=== PATIENT | male | born 1970 | race Caucasian/White ===

== ENCOUNTER 2019-01-05 21:17 | Inpatient (IN) | payer OTHER ==
[~2019-01-05] VITALS: Ht 188 cm; Wt 72.8 kg
[2019-01-06] MEDS ORDERED: SOD CHLORIDE 0.9% 1,000 ML IV STA (01:07)
--- NOTE | 2019-01-06 03:42 | ERD ---
ER Documentation Chief Complaint Chief Complaint jaundiced sclera x2wk, weight loss 25lbs in 8mo. drinks 750mL vodka daily HPI This is a very pleasant 40-year-old male comes in with jaundice sclera for the past 2 weeks. Also complains of weight loss from 45 pounds in the past 3 months. Normally drinks approximately three quarters of a liter of vodka daily. Patient has noticed that his sclera become more and more anicteric. He also has a loss of appetite. Denies fevers chills. Denies any focal neurologic complaints. Denies any other current issues. ROS All systems reviewed and are negative except as per history of present illness. Allergies Allergies: Coded Allergies: No Known Allergy (Unverified , 01/05/19) PMhx/Soc History of Surgery: No Anesthesia Reaction: No Hx Neurological Disorder: No Hx Respiratory Disorders: No Hx Cardiac Disorders: No Hx Psychiatric Problems: No Hx Miscellaneous Medical Probl: Yes (ALCOHOLISM) Hx Alcohol Use: No Hx Substance Use: No Hx Tobacco Use: No Smoking Status: Never smoker Physical Exam Vitals Vital Signs Date Temp Pulse Resp B/P (MAP) Pulse Ox O2 O2 Flow FiO2 Time Delivery Rate 01/06/19 89 15 110/99 98 Room Air 03:09 (103) 01/06/19 98.1 97 19 129/100 100 Room Air 01:12 (110) 01/05/19 98.1 120 22 107/69 99 21:30 (82) Physical Exam Const: No acute distress Head: Atraumatic Eyes: Severe scleral icterus bilaterally ENT: Normal External Ears, Nose and Mouth. Neck: Full range of motion. No meningismus. Resp: Clear to auscultation bilaterally Cardio: Regular rate and rhythm, no murmurs Abd: Soft, non tender, non distended. Normal bowel sounds Skin: No petechiae or rashes Back: No midline or flank tenderness Ext: No cyanosis, or edema Neur: Awake and alert Psych: Normal Mood and Affect Result Diagram: 01/06/1911401/06/19 011 Results 24 hrs Laboratory Tests Test 01/06/19 01:15 White Blood Count 8.2 10^3/ul Red Blood Count 3.66 10^6/ul Hemoglobin 13.5 g/dl Hematocrit 39.0 % Mean Corpuscular Volume 106.6 fl Mean Corpuscular Hemoglobin 36.9 pg Mean Corpuscular Hemoglobin Concent 34.6 g/dl Red Cell Distribution Width 15.1 % Platelet Count 250 10^3/UL Mean Platelet Volume 10.1 fl Immature Granulocytes % 0.600 % Neutrophils % 64.9 % Lymphocytes % 20.0 % Monocytes % 13.0 % Eosinophils % 0.5 % Basophils % 1.0 % Nucleated Red Blood Cells % 0.0 /100WBC Immature Granulocytes # 0.050 10^3/ul Neutrophils # 5.3 10^3/ul Lymphocytes # 1.6 10^3/ul Monocytes # 1.1 10^3/ul Eosinophils # 0.0 10^3/ul Basophils # 0.1 10^3/ul Nucleated Red Blood Cells # 0.0 10^3/ul Sodium Level 135 mmol/L Potassium Level 4.1 mmol/L Chloride Level 97 mmol/L Carbon Dioxide Level 26 mmol/L Anion Gap 12 Blood Urea Nitrogen 5 mg/dl Creatinine 0.60 mg/dl Est Glomerular Filtrat Rate mL/min > 60 mL/min Glucose Level 92 mg/dl Calcium Level 9.6 mg/dl Total Bilirubin 7.0 mg/dl Direct Bilirubin 5.30 mg/dl Indirect Bilirubin 1.7 mg/dl Aspartate Amino Transf (AST/SGOT) 408 IU/L Alanine Aminotransferase (ALT/SGPT) 126 IU/L Alkaline Phosphatase 393 IU/L Troponin I < 0.012 ng/ml Total Protein 7.2 g/dl Albumin 3.8 g/dl Globulin 3.40 g/dl Albumin/Globulin Ratio 1.11 Lipase 269 U/L Current Medications Medications Dose Sig/Ashlee Start Time Status Last (Trade) Ordered Route PRN Stop Time Admin Dose Reason Admin Sodium 1,000 ml @ Q1H STAT 01/06/19 DC 01/06/19 Chloride 1,000 mls/hr IV 01:07 02:00 01/06/19 02:06 Procedures/MDM EKG: Rate/Rhythm: [Normal Sinus Rhythm] QRS, ST, T-waves: [No changes consistent w/ acute ischemia] Impression: [No evidence of ischemia or arrhythmia] Chest X-ray 1V Interpreted by me: Soft Tissue: No acute abnormalities Bones: No acute abnormalities Mediastinum/Cardiac Silhouette/Lungs: [No acute abnormalities] Medical decision making: This very pleasant 48-year-old gentleman reports 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 Patient will be admitted for evaluation and management. Hospitalist made aware of admission. Patient made aware of lab findings Departure Diagnosis: Primary Impression: Fulminant hepatitis Condition: Serious SHERRILL LINO Jan 06, 2019 03:42
[2019-01-06 04:19] VITALS: Ht 188 cm; Wt 72.8 kg
[2019-01-06] MEDS ORDERED: TRAZ-111 PO (04:53)
[2019-01-06] MEDS ORDERED: ALBUTEROL/IPRATROPIUM (NEB) 3 ML AMP HHN PRN (05:00)
[2019-01-06] MEDS ORDERED: NACL 0.9% 3 ML SYG IV SCH (05:00)
[2019-01-06] MEDS ORDERED: ONDANSETRON 4 MG INJ IV PRN (05:00)
[2019-01-06] MEDS ORDERED: LORAZEPAM 2 MG INJ IV PRN ×2 (06:30)
--- NOTE | 2019-01-06 07:44 | HP ---
Date/Time of Note Date/Time of Note DATE: 01/06/19 TIME: 07:40 Assessment/Plan VTE Prophylaxis SCD applied (from Nsg): Yes Pharmacological prophylaxis: heparin Lines/Catheters IV Catheter Type (from Nrsg): Saline Lock Assessment/Plan Assessment/Plan 1. Acute alcoholic hepatitis -Trial of steroid or pentoxifylline -GI consult -Patient may need liver biopsy -Check AFP, hep panel 2. Jaundice: Secondary to above 3. Bilateral lower extremity numbness -Patient reported significant decreased p.o. intake for the past several months due to poor appetite. As a result he lost 20 pounds -Check folic acid and vitamin B12 and A1c -Additional work-up per clinical course 4. Alcohol withdrawal: Patient was mild upper extremity tremor. Last drink was yesterday -Banana bag, Librium, as needed Ativan . Result Diagram: 01/06/1911401/06/19 0115 Results 24hrs Laboratory Tests Test 01/06/19 01:15 White Blood Count 8.2 Red Blood Count 3.66 L Hemoglobin 13.5 L Hematocrit 39.0 L Mean Corpuscular Volume 106.6 H Mean Corpuscular Hemoglobin 36.9 H Mean Corpuscular Hemoglobin Concent 34.6 Red Cell Distribution Width 15.1 H Platelet Count 250 Mean Platelet Volume 10.1 Immature Granulocytes % 0.600 H Neutrophils % 64.9 Lymphocytes % 20.0 Monocytes % 13.0 H Eosinophils % 0.5 Basophils % 1.0 Nucleated Red Blood Cells % 0.0 Immature Granulocytes # 0.050 H Neutrophils # 5.3 Lymphocytes # 1.6 Monocytes # 1.1 H Eosinophils # 0.0 Basophils # 0.1 Nucleated Red Blood Cells # 0.0 Sodium Level 135 Potassium Level 4.1 Chloride Level 97 Carbon Dioxide Level 26 Anion Gap 12 Blood Urea Nitrogen 5 L Creatinine 0.60 L Est Glomerular Filtrat Rate mL/min > 60 Glucose Level 92 Calcium Level 9.6 Total Bilirubin 7.0 H Direct Bilirubin 5.30 H Indirect Bilirubin 1.7 H Aspartate Amino Transf (AST/SGOT) 408 H Alanine Aminotransferase (ALT/SGPT) 126 H Alkaline Phosphatase 393 H Troponin I < 0.012 Total Protein 7.2 Albumin 3.8 Globulin 3.40 H Albumin/Globulin Ratio 1.11 Lipase 269 HPI/ROS Admit Date/Time Admit Date/Time Jan 06, 2019 at 02:59 Hx of Present Illness This is a 48-year-old male with a history of alcohol abuse, hepatitis B (diagnosed 15 years ago) who presented to the ER complaining of yellowing of his eye and bilateral lower extremity numbness. He said the numbness is been going on for the past 3 months and jaundice for the past several days. He said he has been drinking on a daily basis, usually vodka for the last 10 years. He was s nga only for 80 days during this time. He also complains of mild abdominal discomfort. Last drink was yesterday. Patient has mild tremors on both of his hands. He reported 20 pound weight loss in about 9 months due to decreased p.o. intake/decreased appetite. When he presented to the ER, he is found to have a total bilirubin greater than [address] abdomen/pelvis shows the followin. Moderate hepatomegaly (25 cm). Diffuse decreased hepatic attenuation on the basis of hepatic steatosis and/or infiltrative hepatocellular disease. 2. Diverticulosis without diverticulitis. 3. 2 mm nonobstructing right renal calculus. 4. Severe disc height loss at the L5-S1 level with associated endplate sclerosis.. PMH/Family/Social Past Medical History Medical History: other (See HPI) Medications Current Medications IV Flush (NS 3 ml) 3 ml PER PROTOCOL IV ; Start 01/06/19 at 05:00 Ondansetron HCl (Zofran Inj) 4 mg Q6H PRN IV NAUSEA/VOMITING; Start 01/06/19 at 05:00 Albuterol/ Ipratropium (Duoneb) 3 ml Q2H RESP THERAPY PRN HHN SHORTNESS OF BREATH; Start 01/06/19 at 05:00 Prednisone (Prednisone) 30 mg DAILY PO ; Start 01/06/19 at 09:00 Multivitamins 10 ml/Thiamine HCl 100 mg/Folic Acid 1 mg/Sodium Chloride 1,011.2 ml @ 125 mls/ hr DAILY@09 IVPB ; Start 01/06/19 at 09:00; Stop 01/09/19 at 23:00 Chlordiazepoxide (Librium) 75 mg TID PO ; Start 01/06/19 at 09:00 Lorazepam (Ativan) 1 mg Q6H PRN IV anxiety; Start 01/06/19 at 06:30 Lorazepam (Ativan) 2 mg Q1H PRN IV etoh w/d; Start 01/06/19 at 06:30 Coded Allergies: No Known Allergy (Unverified , 01/05/19) Past Surgical History Past Surgical Hx: other (See HPI) Family History Significant Family History: no pertinent family hx Social History Alcohol Use: heavy Smoking Status: Light tobacco smoker Drug Use: none Exam/Review of Systems Vital Signs Vitals Vital Signs Date Temp Pulse Resp B/P (MAP) Pulse Ox O2 O2 Flow FiO2 Time Delivery Rate 01/06/19 98.7 04:43 01/06/19 97 16 105/76 97 Room Air 03:49 (86) Exam Constitutional: alert, oriented, well developed Head: normocephalic, atraumatic Eyes: icteric Respiratory: clear to auscultation Cardiovascular: other (Tachycardic regular rhythm) Gastrointestinal: soft, other (Very mild tenderness ) Extremities: normal pulses Neurological: nl mental status, nl speech, nl strength, other (Sensation intact to light touch on both bilateral lower and upper extremities ) SHERRILL QUINONES MD Jan 06, 2019 07:44
[2019-01-06 07:56] VITALS: BP 114/76; PULSE 102; RESP 19
[2019-01-06] MEDS ORDERED: predniSONE 10 MG TAB PO SCH (09:00)
[2019-01-06] MEDS: MULTIVITAMINS 10 ML, THIAMINE 100 MG, FOLIC ACID 1 MG in SOD CHLORIDE 0.9% 1,000 ML IVPB SCH (10:11)
[2019-01-06] MEDS: CHLORDIAZEPOXIDE 25 MG CAP PO SCH ×3 (10:11→20:48)
[2019-01-06 14:00] VITALS: BP 102/70; PULSE 75; RESP 18
--- NOTE | 2019-01-06 14:11 | CONS ---
Assessment/Plan Assessment/Plan Hospital Course (Demo Recall) Summary Assessment and Plan: Assessment: Alcoholic hepatitis -DF less than 32 Direct hyperbilirubinemia Alcoholic fatty liver ETOH abuse Reported hx of Hepatitis B- -Hepatitis Bs AG- negative -Hepatitis Bs AB- positive- showing immunity Hand/feet numbness -Thiamine deficiency? Plan: MRCP- r/o CBD obstruction -likely negative, however given direct hyperbilirubinemia one must r/o obstruction Will d/c prednisone as DF is less than 32 Will additionally check CHIARA, ASMA, AMA to be thorough Folate/vitamin b1/Vitamin b12- with am labs Discussed need for alcohol cessation- pt verbalized understanding Recommend SW consult for possible rehab Patient seen in collaboration with Dr. Young CC: RAZA YOUNG MD ; Consultation Date/Type/Reason Admit Date/Time Jan 06, 2019 at 02:59 Date of Consultation: Jan 06, 2019 Type of Consult GI Reason for Consultation Elevated LFTs Date/Time of Note DATE: 01/06/19 TIME: 14:00 Hx of Present Illness This is a 48-year-old male with past medical history of alcohol abuse who was admitted for jaundice and alcoholic hepatitis. Patient states he is been drinking 750 mL of vodka for the past 10 years with a short period of sobriety from January to February 2018. Patient states he has a past medical history of hepatitis B serology was obtained showing hepatitis B surface antigen was negat katty and hepatitis B surface antibody is positive additionally hepatitis C antibodies negative. Chemistry checked upon admission show direct hyperbilirubinemia with a T bili of 7.0, AST 408, ALT 126, alkaline phosphatase 393, macrocytic anemia, mild hemoglobin 13.5, platelet count 250, INR 0.98 racquel ent denies abdominal pain, hematochezia, nausea/vomiting, hematemesis. T abdomen pelvis without contrast was obtained showing moderate hepatomegaly with diffuse decreased hepatic attenuation on the basis of hepatic steatosis and no infiltrative hepatic cellular disease, diverticulosis without diverticulitis, 2 mm nonobstructing right renal calculus, severe disc height loss at the L5-S1 level with associated endplate sclerosis. Patient also notes decrease in appetite over the past several days however since hospitalization has been able to eat without difficulty. Review of Systems: A 12 system, review was conducted and is negative except as noted in the HPI or here. Past Medical History Medical History: other (See HPI) Home Meds Reported Medications Trazodone Hcl* (Trazodone Hcl*) 50 Mg Tablet, 25 MG PO QHS, #30 TAB 01/06/19 Medications Current Medications IV Flush (NS 3 ml) 3 ml PER PROTOCOL IV ; Start 01/06/19 at 05:00 Ondansetron HCl (Zofran Inj) 4 mg Q6H PRN IV NAUSEA/VOMITING; Start 01/06/19 at 05:00 Albuterol/ Ipratropium (Duoneb) 3 ml Q2H RESP THERAPY PRN HHN SHORTNESS OF BR EATH; Start 01/06/19 at 05:00 Prednisone (Prednisone) 30 mg DAILY PO Last administered on 01/06/19at 10:12; Admin Dose 30 MG; Start 01/06/19 at 09:00 Multivitamins 10 ml/Thiamine HCl 100 mg/Folic Acid 1 mg/Sodium Chloride 1,011.2 ml @ 125 mls/ hr DAILY@09 IVPB Last administered on 01/06/19at 10:11; Admin Dose 125 MLS/HR; Start 01/06/19 at 09:00; Stop 01/09/19 at 23:00 Chlordiazepoxide (Librium) 75 mg TID PO Last administered on 01/06/19at 13:02; Admin Dose 75 MG; Start 01/06/19 at 09:00 Lorazepam (Ativan) 1 mg Q6H PRN IV anxiety; Start 01/06/19 at 06:30 Lorazepam (Ativan) 2 mg Q1H PRN IV etoh w/d; Start 01/06/19 at 06:30 Allergies: Coded Allergies: No Known Allergy (Unverified , 01/05/19) Past Surgical History Past Surgical Hx: other (See HPI) Social History Alcohol Use: heavy Smoking Status: Light tobacco smoker Drug Use: none Exam/Review of Systems Exam Vitals Vital Signs Date Temp Pulse Resp B/P (MAP) Pulse Ox O2 O2 Flow FiO2 Time Delivery Rate 01/06/19 98.2 102 19 114/76 98 Room Air 07:56 (89) Exam PHYSICAL EXAMINATION: GENERAL: Well developed, well nourished, alert & oriented x 3, in no acute distress, jaundice SKIN: No lesions, HEAD: Normocephalic, atraumatic, no tenderness. EYES: Pupils equal reactive to light and accommodation EARS/NOSE AND THROAT: Ears normal, nose normal NECK: Supple CHEST: Inspection within normal limits. CARDIOVASCULAR: Heart: Regular rate and rhythm RESPIRATORY: Lungs clear to auscultation GASTROINTESTINAL AND LIVER: Abdomen: Soft, non tenderness, non-distended, no hernias, no masses, no organomegaly, no ascites, no guarding, no rebound tenderness, normoactive bowel sounds. Rectal: Deferred. EXTREMITIES: No cyanosis, clubbing or edema. Results Result Diagram: 01/06/19 0115 01/06/19 0115 Results 24hrs Laboratory Tests Test 01/06/19 01:15 01/06/19 07:51 01/06/19 08:05 White Blood Count 8.2 Red Blood Count 3.66 L Hemoglobin 13.5 L Hematocrit 39.0 L Mean Corpuscular Volume 106.6 H Mean Corpuscular Hemoglobin 36.9 H Mean Corpuscular Hemoglobin Concent 34.6 Red Cell Distribution Width 15.1 H Platelet Count 250 Mean Platelet Volume 10.1 Immature Granulocytes % 0.600 H Neutrophils % 64.9 Lymphocytes % 20.0 Monocytes % 13.0 H Eosinophils % 0.5 Basophils % 1.0 Nucleated Red Blood Cells % 0.0 Immature Granulocytes # 0.050 H Neutrophils # 5.3 Lymphocytes # 1.6 Monocytes # 1.1 H Eosinophils # 0.0 Basophils # 0.1 Nucleated Red Blood Cells # 0.0 Sodium Level 135 Potassium Level 4.1 Chloride Level 97 Carbon Dioxide Level 26 Anion Gap 12 Blood Urea Nitrogen 5 L Creatinine 0.60 L Est Glomerular Filtrat Rate mL/min > 60 Glucose Level 92 Calcium Level 9.6 Total Bilirubin 7.0 H Direct Bilirubin 5.30 H Indirect Bilirubin 1.7 H Aspartate Amino Transf (AST/SGOT) 408 H Alanine Aminotransferase (ALT/SGPT) 126 H Alkaline Phosphatase 393 H Troponin I < 0.012 Total Protein 7.2 Albumin 3.8 Globulin 3.40 H Albumin/Globulin Ratio 1.11 Lipase 269 Prothrombin Time 13.1 Prothrombin Time Ratio 1.0 INR International Normalized Ratio 0.98 Activated Partial Thromboplast Time 27.5 Alpha Fetoprotein 2.65 Hepatitis B Surface Antigen NEGATIVE Hepatitis B Surface Antibody POSITIVE H Hepatitis C Antibody NEGATIVE Medications Medication Current Medications IV Flush (NS 3 ml) 3 ml PER PROTOCOL IV ; Start 01/06/19 at 05:00 Ondansetron HCl (Zofran Inj) 4 mg Q6H PRN IV NAUSEA/VOMITING; Start 01/06/19 at 05:00 Albuterol/ Ipratropium (Duoneb) 3 ml Q2H RESP THERAPY PRN HHN SHORTNESS OF BREATH; Start 01/06/19 at 05:00 Prednisone (Prednisone) 30 mg DAILY PO Last administered on 01/06/19at 10:12; Admin Dose 30 MG; Start 01/06/19 at 09:00 Multivitamins 10 ml/Thiamine HCl 100 mg/Folic Acid 1 mg/Sodium Chloride 1,011.2 ml @ 125 mls/ hr DAILY@09 IVPB Last administered on 01/06/19at 10:11; Admin Dose 125 MLS/HR; Start 01/06/19 at 09:00; Stop 01/09/19 at 23:00 Chlordiazepoxide (Librium) 75 mg TID PO Last administered on 01/06/19at 13:02; Admin Dose 75 MG; Start 01/06/19 at 09:00 Lorazepam (Ativan) 1 mg Q6H PRN IV anxiety; Start 01/06/19 at 06:30 Lorazepam (Ativan) 2 mg Q1H PRN IV etoh w/d; Start 01/06/19 at 06:30 ELMER TOMPKINS Jan 06, 2019 14:11
--- NOTE | 2019-01-06 15:53 | PN ---
Date/Time of Note Date/Time of Note DATE: 01/06/19 TIME: 15:49 Assessment/Plan VTE Prophylaxis Risk score (from Ns)>0 risk: 2 SCD applied (from [facility] [place] Yes SCD contraindicated: low risk/ambulating Pharmacological prophylaxis: LMWH Pharm contraindication: low risk/ambulating Lines/Catheters IV C[facility] Type (from [facility] Saline Lock Urinary Cath still in place: No Assessment/Plan Hospital Course Assessment and plan 1. Acute alcoholic hepatitis, stable, continue supportive care. DF 32. 2. Chronic alcoholism 3. Chronic major depression 4. Chronic hepatitis B 4. Chr HEP B 5. Wt loss #1/2 6. Peripheral neuropathy? B1 S: recent jaundice; etoh O: vss PE icterus; no adenopathy reg s1s2 no mrg ctab bs + nt; mild ascites? no r/r/g spider angio's? no edema Result Diagram: 01/06/19 0115 01/06/19 0115 Results 24hrs Laboratory Tests Test 01/06/19 01:15 01/06/19 07:51 01/06/19 08:05 White Blood Count 8.2 Red Blood Count 3.66 L Hemoglobin 13.5 L Hematocrit 39.0 L Mean Corpuscular Volume 106.6 H Mean Corpuscular Hemoglobin 36.9 H Mean Corpuscular Hemoglobin Concent 34.6 Red Cell Distribution Width 15.1 H Platelet Count 250 Mean Platelet Volume 10.1 Immature Granulocytes % 0.600 H Neutrophils % 64.9 Lymphocytes % 20.0 Monocytes % 13.0 H Eosinophils % 0.5 Basophils % 1.0 Nucleated Red Blood Cells % 0.0 Immature Granulocytes # 0.050 H Neutrophils # 5.3 Lymphocytes # 1.6 Monocytes # 1.1 H Eosinophils # 0.0 Basophils # 0.1 Nucleated Red Blood Cells # 0.0 Sodium Level 135 Potassium Level 4.1 Chloride Level 97 Carbon Dioxide Level 26 Anion Gap 12 Blood Urea Nitrogen 5 L Creatinine 0.60 L Est Glomerular Filtrat Rate mL/min > 60 Glucose Level 92 Calcium Level 9.6 Total Bilirubin 7.0 H Direct Bilirubin 5.30 H Indirect Bilirubin 1.7 H Aspartate Amino Transf (AST/SGOT) 408 H Alanine Aminotransferase (ALT/SGPT) 126 H Alkaline Phosphatase 393 H Troponin I < 0.012 Total Protein 7.2 Albumin 3.8 Globulin 3.40 H Albumin/Globulin Ratio 1.11 Lipase 269 Prothrombin Time 13.1 Prothrombin Time Ratio 1.0 INR International Normalized Ratio 0.98 Activated Partial Thromboplast Time 27.5 Alpha Fetoprotein 2.65 Hepatitis B Surface Antigen NEGATIVE Hepatitis B Surface Antibody POSITIVE H Hepatitis C Antibody NEGATIVE Exam/Review of Systems Exam Vitals Vital Signs Date Temp Pulse Resp B/P (MAP) Pulse Ox O2 O2 Flow FiO2 Time Delivery Rate 01/06/19 98.3 75 18 102/70 96 14:00 (81) 01/06/19 Room Air 07:56 Results Results 24hrs Laboratory Tests Test 01/06/19 01:15 01/06/19 07:51 01/06/19 08:05 White Blood Count 8.2 Red Blood Count 3.66 L Hemoglobin 13.5 L Hematocrit 39.0 L Mean Corpuscular Volume 106.6 H Mean Corpuscular Hemoglobin 36.9 H Mean Corpuscular Hemoglobin Concent 34.6 Red Cell Distribution Width 15.1 H Platelet Count 250 Mean Platelet Volume 10.1 Immature Granulocytes % 0.600 H Neutrophils % 64.9 Lymphocytes % 20.0 Monocytes % 13.0 H Eosinophils % 0.5 Basophils % 1.0 Nucleated Red Blood Cells % 0.0 Immature Granulocytes # 0.050 H Neutrophils # 5.3 Lymphocytes # 1.6 Monocytes # 1.1 H Eosinophils # 0.0 Basophils # 0.1 Nucleated Red Blood Cells # 0.0 Sodium Level 135 Potassium Level 4.1 Chloride Level 97 Carbon Dioxide Level 26 Anion Gap 12 Blood Urea Nitrogen 5 L Creatinine 0.60 L Est Glomerular Filtrat Rate mL/min > 60 Glucose Level 92 Calcium Level 9.6 Total Bilirubin 7.0 H Direct Bilirubin 5.30 H Indirect Bilirubin 1.7 H Aspartate Amino Transf (AST/SGOT) 408 H Alanine Aminotransferase (ALT/SGPT) 126 H Alkaline Phosphatase 393 H Troponin I < 0.012 Total Protein 7.2 Albumin 3.8 Globulin 3.40 H Albumin/Globulin Ratio 1.11 Lipase 269 Prothrombin Time 13.1 Prothrombin Time Ratio 1.0 INR International Normalized Ratio 0.98 Activated Partial Thromboplast Time 27.5 Alpha Fetoprotein 2.65 Hepatitis B Surface Antigen NEGATIVE Hepatitis B Surface Antibody POSITIVE H Hepatitis C Antibody NEGATIVE Medications Medication Current Medications IV Flush (NS 3 ml) 3 ml PER PROTOCOL IV ; Start 01/06/19 at 05:00 Ondansetron HCl (Zofran Inj) 4 mg Q6H PRN IV NAUSEA/VOMITING; Start 01/06/19 at 05:00 Albuterol/ Ipratropium (Duoneb) 3 ml Q2H RESP THERAPY PRN HHN SHORTNESS OF BREATH; Start 01/06/19 at 05:00 Multivitamins 10 ml/Thiamine HCl 100 mg/Folic Acid 1 mg/Sodium Chloride 1,011.2 ml @ 125 mls/ hr DAILY@09 IVPB Last administered on 01/06/19at 10:11; Admin Dose 125 MLS/HR; Start 01/06/19 at 09:00; Stop 01/09/19 at 23:00 Chlordiazepoxide (Librium) 75 mg TID PO Last administered on 01/06/19at 13:02; Admin Dose 75 MG; Start 01/06/19 at 09:00 Lorazepam (Ativan) 1 mg Q6H PRN IV anxiety; Start 01/06/19 at 06:30 Lorazepam (Ativan) 2 mg Q1H PRN IV etoh w/d; Start 01/06/19 at 06:30 JIGAR BANG MD Jan 06, 2019 15:53
[2019-01-06] MEDS: SOD CHLORIDE 0.9% 1,000 ML IV SCH (16:00)
[2019-01-06] MEDS: LORAZEPAM 1 MG TAB PO SCH ×2 (18:00→22:18)
[2019-01-06 20:15] VITALS: BP 108/78; PULSE 105; RESP 18
[2019-01-06] MEDS: FAMOTIDINE 20 MG TAB PO SCH (20:48)
[2019-01-07 02:18] VITALS: BP 105/81; PULSE 60; RESP 18
[2019-01-07] MEDS: SOD CHLORIDE 0.9% 1,000 ML IV SCH ×2 (04:49→12:00)
[2019-01-07] MEDS: LORAZEPAM 1 MG TAB PO SCH ×3 (05:36→22:07)
[2019-01-07 07:52] VITALS: BP 99/65; PULSE 75; RESP 19
[2019-01-07] MEDS: CHLORDIAZEPOXIDE 25 MG CAP PO SCH ×3 (09:43→20:30)
[2019-01-07] MEDS: MULTIVITAMINS 10 ML, THIAMINE 100 MG, FOLIC ACID 1 MG in SOD CHLORIDE 0.9% 1,000 ML IVPB SCH (09:44)
[2019-01-07] MEDS: ENOXAPARIN 30 MG/0.3 ML SYG SC SCH (09:52)
--- NOTE | 2019-01-07 13:35 | PN ---
Date/Time of Note Date/Time of Note DATE: 01/07/19 TIME: 13:21 Assessment/Plan VTE Prophylaxis Risk score (from Ns)>0 risk: 2 SCD applied (from Ns): Yes Pharmacological prophylaxis: other (scds) Lines/Catheters [facility] (from [facility] Peripheral IV Urinary Cath still in place: No Assessment/Plan Hospital Course Summary Assessment and Plan: Assessment: Alcoholic hepatitis -DF less than 32 Direct hyperbilirubinemia - 2/2 hepatocellular dz- improved -MRCP negative for CBD obstruction- Transaminitis (AST>ALT)- improving Alcoholic fatty liver Macrocytic anemia ETOH abuse/Alcoholism Reported hx of Hepatitis B- -Hepatitis Bs AG- negative -Hepatitis Bs AB- positive- showing immunity Hand/feet numbness- improved -Thiamine deficiency? Plan: Supportive care Encourage PO intake Await pending labs Discussed need for alcohol cessation- pt verbalized understanding Recommend SW consult for possible rehab- given concern for high change of relapse Pt will need to f/u with GI after discharge for further out-pt work-up including fibrosis scoring Patient seen in collaboration with Dr. Young Subjective: Course reviewed with nursing staff Patient interviewed and examined All labs, imaging and other results reviewed The patient over all feels better Discussed results of labs He currently denies n/v or abd pain Tolerating diet well PHYSICAL EXAMINATION: GENERAL: Well developed, well nourished, alert & oriented x 3, in no acute distress, jaundice SKIN: No lesions, HEAD: Normocephalic, atraumatic, no tenderness. EYES: Pupils equal reactive to light and accommodation EARS/NOSE AND THROAT: Ears normal, nose normal NECK: Supple CHEST: Inspection within normal limits. CARDIOVASCULAR: Heart: Regular rate and rhythm RESPIRATORY: Lungs clear to auscultation GASTROINTESTINAL AND LIVER: Abdomen: Soft, non tenderness, non-distended, no hernias, no masses, no organomegaly, no ascites, no guarding, no rebound tenderness, normoactive bowel sounds. Rectal: Deferred. EXTREMITIES: No cyanosis, clubbing or edema. Result Diagram: 01/07/19 0556 01/07/19 0556 Results 24hrs Laboratory Tests Test 01/07/19 05:56 White Blood Count 5.1 # Red Blood Count 2.90 #L Hemoglobin 10.7 #L Hematocrit 31.4 L Mean Corpuscular Volume 108.3 H Mean Corpuscular Hemoglobin 36.9 H Mean Corpuscular Hemoglobin Concent 34.1 Red Cell Distribution Width 15.4 H Platelet Count 178 # Mean Platelet Volume 9.8 Immature Granulocytes % 0.400 Neutrophils % 65.1 Lymphocytes % 20.4 Monocytes % 12.3 H Eosinophils % 1.2 Basophils % 0.6 Nucleated Red Blood Cells % 0.0 Immature Granulocytes # 0.020 Neutrophils # 3.3 Lymphocytes # 1.0 Monocytes # 0.6 Eosinophils # 0.1 Basophils # 0.0 Nucleated Red Blood Cells # 0.0 Sodium Level 139 Potassium Level 3.6 Chloride Level 106 Carbon Dioxide Level 27 Anion Gap 6 Blood Urea Nitrogen 8 Creatinine 0.53 L Est Glomerular Filtrat Rate mL/min > 60 Glucose Level 83 Hemoglobin A1c 4.5 Calcium Level 8.6 Phosphorus Level 3.0 Magnesium Level 2.0 Total Bilirubin 4.4 #H Direct Bilirubin 3.00 #H Indirect Bilirubin 1.4 H Aspartate Amino Transf (AST/SGOT) 206 H Alanine Aminotransferase (ALT/SGPT) 85 H Alkaline Phosphatase 277 H Total Protein 5.4 #L Albumin 2.8 #L Globulin 2.60 Albumin/Globulin Ratio 1.07 Triglycerides Level 258 H Cholesterol Level 368 H LDL Cholesterol, Calculated 264 HDL Cholesterol 52 Cholesterol/HDL Ratio 7.0 Vitamin B12 Level 647 Folate 12.2 Thyroid Stimulating Hormone (TSH) 2.210 Exam/Review of Systems Exam Vitals Vital Signs Date Temp Pulse Resp B/P (MAP) Pulse Ox O2 O2 Flow FiO2 Time Delivery Rate 01/07/19 98.3 75 19 99/65 (76) 98 Room Air 07:52 Intake and Output 01/06/19 01/06/19 01/07/19 1515:00 23:00 07:00 IntakeIntake Total 1600 ml 1611.2 ml BalanceBalance 1600 ml 1611.2 ml Results Results 24hrs Laboratory Tests Test 01/07/19 05:56 White Blood Count 5.1 # Red Blood Count 2.90 #L Hemoglobin 10.7 #L Hematocrit 31.4 L Mean Corpuscular Volume 108.3 H Mean Corpuscular Hemoglobin 36.9 H Mean Corpuscular Hemoglobin Concent 34.1 Red Cell Distribution Width 15.4 H Platelet Count 178 # Mean Platelet Volume 9.8 Immature Granulocytes % 0.400 Neutrophils % 65.1 Lymphocytes % 20.4 Monocytes % 12.3 H Eosinophils % 1.2 Basophils % 0.6 Nucleated Red Blood Cells % 0.0 Immature Granulocytes # 0.020 Neutrophils # 3.3 Lymphocytes # 1.0 Monocytes # 0.6 Eosinophils # 0.1 Basophils # 0.0 Nucleated Red Blood Cells # 0.0 Sodium Level 139 Potassium Level 3.6 Chloride Level 106 Carbon Dioxide Level 27 Anion Gap 6 Blood Urea Nitrogen 8 Creatinine 0.53 L Est Glomerular Filtrat Rate mL/min > 60 Glucose Level 83 Hemoglobin A1c 4.5 Calcium Level 8.6 Phosphorus Level 3.0 Magnesium Level 2.0 Total Bilirubin 4.4 #H Direct Bilirubin 3.00 #H Indirect Bilirubin 1.4 H Aspartate Amino Transf (AST/SGOT) 206 H Alanine Aminotransferase (ALT/SGPT) 85 H Alkaline Phosphatase 277 H Total Protein 5.4 #L Albumin 2.8 #L Globulin 2.60 Albumin/Globulin Ratio 1.07 Triglycerides Level 258 H Cholesterol Level 368 H LDL Cholesterol, Calculated 264 HDL Cholesterol 52 Cholesterol/HDL Ratio 7.0 Vitamin B12 Level 647 Folate 12.2 Thyroid Stimulating Hormone (TSH) 2.210 Medications Medication Current Medications IV Flush (NS 3 ml) 3 ml PER PROTOCOL IV ; Start 01/06/19 at 05:00 Ondansetron HCl (Zofran Inj) 4 mg Q6H PRN IV NAUSEA/VOMITING; Start 01/06/19 at 05:00 Albuterol/ Ipratropium (Duoneb) 3 ml Q2H RESP THERAPY PRN HHN SHORTNESS OF BREATH; Start 01/06/19 at 05:00 Multivitamins 10 ml/Thiamine HCl 100 mg/Folic Acid 1 mg/Sodium Chloride 1,011.2 ml @ 125 mls/ hr DAILY@09 IVPB Last administered on 01/07/19at 09:44; Admin Dose 125 MLS/HR; Start 01/06/19 at 09:00; Stop 01/09/19 at 23:00 Chlordiazepoxide (Librium) 75 mg TID PO Last administered on 01/07/19at 09:43; Admin Dose 75 MG; Start 01/06/19 at 09:00 Lorazepam (Ativan) 1 mg Q6H PRN IV anxiety; Start 01/06/19 at 06:30 Lorazepam (Ativan) 2 mg Q1H PRN IV etoh w/d; Start 01/06/19 at 06:30 Famotidine (Pepcid) 20 mg HS PO Last administered on 01/06/19at 20:48; Admin Dose 20 MG; Start 01/06/19 at 21:00 Sodium Chloride 1,000 ml @ 100 mls/hr Q10H IV Last administered on 01/07/19at 04:49; Admin Dose 100 MLS/HR; Start 01/06/19 at 16:00 Lorazepam (Ativan) 1 mg Q8 PO Last administered on 01/07/19at 05:36; Admin Dose 1 MG; Start 01/06/19 at 16:00 Enoxaparin Sodium (Lovenox) 30 mg DAILY SC Last administered on 01/07/19at 09:52; Admin Dose 30 MG; Start 01/07/19 at 09:00 ELMER TOMPKINS Jan 07, 2019 13:34
[2019-01-07 14:39] VITALS: BP 109/73; PULSE 100; RESP 18
--- NOTE | 2019-01-07 16:56 | PN ---
Date/Time of Note Date/Time of Note DATE: 01/07/19 TIME: 16:55 Assessment/Plan VTE Prophylaxis Risk score (from [facility] [place]0 risk: 2 SCD applied (from [facility] [place] Yes SCD contraindicated: low risk/ambulating Pharmacological prophylaxis: NA/contraindicated Pharm contraindication: blood coag disorder, liver dx Lines/Catheters IV Catheter Type (from [facility]): Peripheral IV Urinary Cath still in place: No Assessment/Plan Hospital Course Assessment and plan 1. Acute alcoholic hepatitis, stable, cont supportive care. DF 32. 2. Chronic alcoholism 3. Chronic major depression 4. Chronic hepatitis B 4. Chr HEP B 5. Wt loss #1/2 6. Peripheral neuropathy? B1 S: 01/06 recent jaundice; etoh 01/07: No events. No fever abdominal pain. Tolerating diet. Probably home tomorrow O: vss PE icterus reg s1s2 no mrg ctab bs + nt; mild ascites? no r/r/g spider angio's? no edema Result Diagram: 01/07/19 0556 01/07/19 0556 Results 24hrs Laboratory Tests Test 01/07/19 05:56 White Blood Count 5.1 # Red Blood Count 2.90 #L Hemoglobin 10.7 #L Hematocrit 31.4 L Mean Corpuscular Volume 108.3 H Mean Corpuscular Hemoglobin 36.9 H Mean Corpuscular Hemoglobin Concent 34.1 Red Cell Distribution Width 15.4 H Platelet Count 178 # Mean Platelet Volume 9.8 Immature Granulocytes % 0.400 Neutrophils % 65.1 Lymphocytes % 20.4 Monocytes % 12.3 H Eosinophils % 1.2 Basophils % 0.6 Nucleated Red Blood Cells % 0.0 Immature Granulocytes # 0.020 Neutrophils # 3.3 Lymphocytes # 1.0 Monocytes # 0.6 Eosinophils # 0.1 Basophils # 0.0 Nucleated Red Blood Cells # 0.0 Sodium Level 139 Potassium Level 3.6 Chloride Level 106 Carbon Dioxide Level 27 Anion Gap 6 Blood Urea Nitrogen 8 Creatinine 0.53 L Est Glomerular Filtrat Rate mL/min > 60 Glucose Level 83 Hemoglobin A1c 4.5 Calcium Level 8.6 Phosphorus Level 3.0 Magnesium Level 2.0 Total Bilirubin 4.4 #H Direct Bilirubin 3.00 #H Indirect Bilirubin 1.4 H Aspartate Amino Transf (AST/SGOT) 206 H Alanine Aminotransferase (ALT/SGPT) 85 H Alkaline Phosphatase 277 H Total Protein 5.4 #L Albumin 2.8 #L Globulin 2.60 Albumin/Globulin Ratio 1.07 Triglycerides Level 258 H Cholesterol Level 368 H LDL Cholesterol, Calculated 264 HDL Cholesterol 52 Cholesterol/HDL Ratio 7.0 Vitamin B12 Level 647 Folate 12.2 Thyroid Stimulating Hormone (TSH) 2.210 Exam/Review of Systems Exam Vitals Vital Signs Date Temp Pulse Resp B/P (MAP) Pulse Ox O2 O2 Flow FiO2 Time Delivery Rate 01/07/19 98.9 100 18 109/73 99 Room Air 14:39 (85) Intake and Output 01/06/19 01/06/19 01/07/19 1515:00 23:00 07:00 IntakeIntake Total 1600 ml 1611.2 ml BalanceBalance 1600 ml 1611.2 ml Results Results 24hrs Laboratory Tests Test 01/07/19 05:56 White Blood Count 5.1 # Red Blood Count 2.90 #L Hemoglobin 10.7 #L Hematocrit 31.4 L Mean Corpuscular Volume 108.3 H Mean Corpuscular Hemoglobin 36.9 H Mean Corpuscular Hemoglobin Concent 34.1 Red Cell Distribution Width 15.4 H Platelet Count 178 # Mean Platelet Volume 9.8 Immature Granulocytes % 0.400 Neutrophils % 65.1 Lymphocytes % 20.4 Monocytes % 12.3 H Eosinophils % 1.2 Basophils % 0.6 Nucleated Red Blood Cells % 0.0 Immature Granulocytes # 0.020 Neutrophils # 3.3 Lymphocytes # 1.0 Monocytes # 0.6 Eosinophils # 0.1 Basophils # 0.0 Nucleated Red Blood Cells # 0.0 Sodium Level 139 Potassium Level 3.6 Chloride Level 106 Carbon Dioxide Level 27 Anion Gap 6 Blood Urea Nitrogen 8 Creatinine 0.53 L Est Glomerular Filtrat Rate mL/min > 60 Glucose Level 83 Hemoglobin A1c 4.5 Calcium Level 8.6 Phosphorus Level 3.0 Magnesium Level 2.0 Total Bilirubin 4.4 #H Direct Bilirubin 3.00 #H Indirect Bilirubin 1.4 H Aspartate Amino Transf (AST/SGOT) 206 H Alanine Aminotransferase (ALT/SGPT) 85 H Alkaline Phosphatase 277 H Total Protein 5.4 #L Albumin 2.8 #L Globulin 2.60 Albumin/Globulin Ratio 1.07 Triglycerides Level 258 H Cholesterol Level 368 H LDL Cholesterol, Calculated 264 HDL Cholesterol 52 Cholesterol/HDL Ratio 7.0 Vitamin B12 Level 647 Folate 12.2 Thyroid Stimulating Hormone (TSH) 2.210 Medications Medication Current Medications IV Flush (NS 3 ml) 3 ml PER PROTOCOL IV ; Start 01/06/19 at 05:00 Ondansetron HCl (Zofran Inj) 4 mg Q6H PRN IV NAUSEA/VOMITING; Start 01/06/19 at 05:00 Albuterol/ Ipratropium (Duoneb) 3 ml Q2H RESP THERAPY PRN HHN SHORTNESS OF BREATH; Start 01/06/19 at 05:00 Multivitamins 10 ml/Thiamine HCl 100 mg/Folic Acid 1 mg/Sodium Chloride 1,011.2 ml @ 125 mls/ hr DAILY@09 IVPB Last administered on 01/07/19at 09:44; Admin Dose 125 MLS/HR; Start 01/06/19 at 09:00; Stop 01/09/19 at 23:00 Chlordiazepoxide (Librium) 75 mg TID PO Last administered on 01/07/19at 14:12; Admin Dose 75 MG; Start 01/06/19 at 09:00 Lorazepam (Ativan) 1 mg Q6H PRN IV anxiety; Start 01/06/19 at 06:30 Lorazepam (Ativan) 2 mg Q1H PRN IV etoh w/d; Start 01/06/19 at 06:30 Famotidine (Pepcid) 20 mg HS PO Last administered on 01/06/19at 20:48; Admin Dose 20 MG; Start 01/06/19 at 21:00 Sodium Chloride 1,000 ml @ 100 mls/hr Q10H IV Last administered on 01/07/19at 04:49; Admin Dose 100 MLS/HR; Start 01/06/19 at 16:00 Lorazepam (Ativan) 1 mg Q8 PO Last administered on 01/07/19at 14:11; Admin Dose 1 MG; Start 01/06/19 at 16:00 Enoxaparin Sodium (Lovenox) 30 mg DAILY SC Last administered on 01/07/19 09:52; Admin Dose 30 MG; Start 01/07/19 at 09:00 JIGAR BANG MD Jan 07, 2019 16:56
[2019-01-07 20:25] VITALS: BP 108/74; PULSE 101; RESP 20
[2019-01-07] MEDS: FAMOTIDINE 20 MG TAB PO SCH (20:30)
[2019-01-08] MEDS: SOD CHLORIDE 0.9% 1,000 ML IV SCH ×2 (02:02→13:00)
[2019-01-08 02:18] VITALS: BP 98/76; PULSE 84; RESP 18
[2019-01-08] MEDS: LORAZEPAM 1 MG TAB PO SCH ×2 (06:14→14:00)
[2019-01-08 08:10] VITALS: BP 104/74; RESP 18
[2019-01-08 08:14] VITALS: BP 88/64; PULSE 87; RESP 18
[2019-01-08] MEDS ORDERED: THIAMINE 100 MG TAB PO SCH (09:00)
[2019-01-08] MEDS: CHLORDIAZEPOXIDE 25 MG CAP PO SCH ×2 (09:33→13:00)
[2019-01-08] MEDS: ENOXAPARIN 30 MG/0.3 ML SYG SC SCH (09:35)
--- NOTE | 2019-01-08 14:19 | PDOCDIS ---
Discharge Instructions CONDITION [id number] Patient Condition: [id number] Fair HOME CARE INSTRUCTIONS: [id number] Diet Instructions: [id number] Regular ACTIVITY: [id number] Activity Restrictions: [id number] No Restrictions Rest between Activity Do not Drive FOLLOW UP/APPOINTMENTS Follow-up Plan appt Primary 1wk AA referral again JIGAR BANG MD Jan 08, 2019 14:19
[2019-01-08] MEDS ORDERED: POTA20TA96 PO (14:20)
[2019-01-08] MEDS ORDERED: THIA100T56 PO (14:20)
[2019-01-08] MEDS ORDERED: FAMO20TA18 PO (14:20)
[2019-01-08 14:40] VITALS: BP 97/69; PULSE 99; RESP 18
--- NOTE | 2019-01-08 14:40 | DS ---
Date/Time of Note Date/Time of Note DATE: 01/08/19 TIME: 14:35 Discharge Summary Admission/Discharge Info Admit Date/Time Jan 06, 2019 at 02:59 Discharge Date/Time Patient Condition: Stable Consults [facility] Procedures CT abdomen pelvis IMPRESSION: 1. Moderate hepatomegaly (25 cm). Diffuse decreased hepatic attenuation on the basis of hepatic steatosis and/or infiltrative hepatocellular disease. 2. Diverticulosis without diverticulitis. 3. 2 mm nonobstructing right renal calculus. 4. Severe disc height loss at the L5-S1 level with associated endplate sclerosis. MRCP IMPRESSION: 1. No evidence for CBD obstruction. 2. No choledocholithiasis nor biliary dilatation. 3. Partially contracted gallbladder with gallbladder wall thickening and edema. 4. Minimal scattered ascites throughout the upper abdomen. 5. Enlarged fatty liver. Chest x-ray no acute process Hx of Present Illness 40-year-old alcoholic admitted with intoxication and withdrawal Hospital Course Hospitalist coverage/hospital course 1. Acute alcoholic hepatitis, stable, start home on thiamine. Asked him to visit the AA. Not sure if he is mentally ready for AA. DF=32. Patient was seen by GI. Asked him to follow-up with GI for valuation of fibrosis down the line. I asked him not to drive his car. Stable and fit for discharge home. Family at bedside all questions answered. 2. Chronic alcoholism. 3. Chronic major depression 4. Chronic hepatitis B 4. Chr HEP B 5. Wt loss #1/2 6. Peripheral neuropathy? B1 therapy started. Thiamine level is a send out and can be followed up on if needed but I do not feel it is necessary. S: 01/06 recent jaundice; etoh 01/07: No events. No fever abdominal pain. Tolerating diet. Probably home tomorrow 01/08 home today O: vss PE icterus reg s1s2 no mrg ctab bs + nt; mild ascites? no r/r/g spider angio's? no edema Home Meds Active Scripts Potassium Chloride* (Potassium Chloride*) 20 Meq Tablet.er, 20 MEQ PO DAILY for 5 Days, #5 TAB.SA Prov:JIGAR BANG MD 01/08/19 Famotidine* (Famotidine*) 20 Mg Tablet, 20 MG PO HS for 14 Days, #14 TAB otc Prov:JIGAR BANG MD 01/08/19 Thiamine* (Vitamin B-1*) 100 Mg Tablet, 100 MG PO DAILY for 30 Days, #30 TAB 3 Refills Prov:JIGAR BANG MD 01/08/19 Discontinued Reported Medications Trazodone Hcl* (Trazodone Hcl*) 50 Mg Tablet, 25 MG PO QHS, #30 TAB 01/06/19 Follow-up Plan appt Primary 1wk AA referral again Primary Care Provider Care Physician No Primary Time spent on discharge: < 30 minutes Pending Labs Laboratory Tests Test 01/08/19 06:17 White Blood Count 7.9 10^3/ul (4.8-10.8) Red Blood Count 3.53 10^6/ul (4.70-6.10) Hemoglobin 13.0 g/dl (14.0-18.0) Hematocrit 38.9 % (42.0-52.0) Mean Corpuscular Volume 110.2 fl (82.0-101.0) Mean Corpuscular Hemoglobin 36.8 pg (29.0-33.0) Mean Corpuscular Hemoglobin Concent 33.4 g/dl (32.0-37.0) Red Cell Distribution Width 15.9 % (11.5-14.5) Platelet Count 243 10^3/UL (140-415) Mean Platelet Volume 10.6 fl (7.4-10.4) Immature Granulocytes % 1.000 % (0.001-0.429) Neutrophils % 62.9 % (39.0-77.0) Lymphocytes % 22.7 % (15.0-51.0) Monocytes % 11.3 % (0.0-11.0) Eosinophils % 1.1 % (0.0-7.0) Basophils % 1.0 % (0.0-2.0) Nucleated Red Blood Cells % 0.0 /100WBC (0.0-0.0) Immature Granulocytes # 0.080 10^3/ul (0.0-0.031) Neutrophils # 5.0 10^3/ul (1.6-7.5) Lymphocytes # 1.8 10^3/ul (0.8-2.9) Monocytes # 0.9 10^3/ul (0.3-0.9) Eosinophils # 0.1 10^3/ul (0.0-0.5) Basophils # 0.1 10^3/ul (0.0-0.1) Nucleated Red Blood Cells # 0.0 10^3/ul (0.0-0.0) Sodium Level 142 mmol/L (135-144) Potassium Level 3.4 mmol/L (3.5-5.1) Chloride Level 106 mmol/L (97-110) Carbon Dioxide Level 25 mmol/L (21-31) Anion Gap 11 (5-13) Blood Urea Nitrogen 6 mg/dl (7-20) Creatinine 0.60 mg/dl (0.61-1.24) Est Glomerular Filtrat Rate mL/min > 60 mL/min (>60) Glucose Level 103 mg/dl (70-220) Calcium Level 9.4 mg/dl (8.4-10.2) Total Bilirubin 5.2 mg/dl (0.2-1.3) Direct Bilirubin 3.90 mg/dl (0.00-0.20) Indirect Bilirubin 1.3 mg/dl (0-1.1) Aspartate Amino Transf (AST/SGOT) 222 IU/L (15-46) Alanine Aminotransferase (ALT/SGPT) 86 IU/L (13-69) Alkaline Phosphatase 384 IU/L (42-121) Total Protein 6.8 g/dl (6.1-8.1) Albumin 3.4 g/dl (3.3-4.9) Globulin 3.40 g/dl (1.3-3.2) Albumin/Globulin Ratio 1.00 JIGAR BANG MD Jan 08, 2019 14:39
== END 2019-01-08 15:40 | disposition home or self-care (01) | DRG 433 ==
LOC: E/R 21:17 → PP2 01-06 02:59
PROVIDERS: ADMIT Internal Medicine; ATTEND Internal Medicine
DX: K70.10 Alcoholic hepatitis without ascites (principal); F10.239 Alcohol dependence with withdrawal, unspecified; B18.1 Chronic viral hepatitis B without delta-agent; G62.9 Polyneuropathy, unspecified; Z72.0 Tobacco use; F32.9 Major depressive disorder, single episode, unspecified; D53.9 Nutritional anemia, unspecified; R63.4 Abnormal weight loss; Z68.20 Body mass index [BMI] 20.0-20.9, adult; K70.0 Alcoholic fatty liver
CPT/HCPCS: 36415; 71045; 74176; 74181; 80053; 80061; 82105; 82607; 82746; 83036; 83690; 83735; 84100; 84425; 84443; 84484; 85025; 85610; 85730; 86038; 86255; 86706; 86803; 87340; 93005; 96360; J1650; J3411; J7030; J7512